=== PATIENT | female | born 1965 | race Caucasian/White ===

== ENCOUNTER 2016-12-22 21:12 | Emergency (ER) | payer BC ==
[~2016-12-22] VITALS: Ht 157.5 cm; Wt 68.0 kg
--- NOTE | 2016-12-22 21:28 | NUR ---
PATIENT WALKED INTO ER C/O SORE THROAT,GENARALIZED BODYACHE AND COUGH X3 DAYS... PT IS ALERT, ORIENTED X 4, NO RESP DISTRESS NOTED OR REPORTED UPON ASSESSMENT...
--- NOTE | 2016-12-22 22:44 | NUR ---
Patient eloped from facility. ER physician notified. Pt walked out of ER unassisted with belongings and at side...
== END 2016-12-22 22:47 | disposition left against medical advice (07) ==
LOC: ER 21:14
DX: Z53.21 Procedure and treatment not carried out due to patient leaving prior to being seen by health care provider (principal)
CPT/HCPCS: A4663

== ENCOUNTER 2024-06-02 20:19 | Emergency (ER) | payer BC ==
[~2024-06-02] VITALS: Ht 157.5 cm; Wt 69.4 kg
[2024-06-02 22:30] VITALS: BP 136/87; TEMP 98; O2SAT 97
== END 2024-06-02 22:22 | disposition home or self-care (01) ==
LOC: ER 20:19
DX: S69.81XA Other specified injuries of right wrist, hand and finger(s), initial encounter (principal); M65.931 Unspecified synovitis and tenosynovitis, right forearm; Z88.0 Allergy status to penicillin; Z88.5 Allergy status to narcotic agent; Z91.030 Bee allergy status; X58.XXXA Exposure to other specified factors, initial encounter; Y93.89 Activity, other specified; Y92.89 Other specified places as the place of occurrence of the external cause; Y99.8 Other external cause status
CPT/HCPCS: 73130; A4606; A4663

== ENCOUNTER 2024-07-26 11:19 | Emergency (ER) | payer BC ==
[~2024-07-26] VITALS: Ht 157.5 cm; Wt 69.9 kg
[2024-07-26] MEDS ORDERED: diphenhydrAMINE 50 MG/1 ML VIAL ONE ×2 (11:36→11:41)
[2024-07-26] MEDS ORDERED: methylPREDNISolone SOD SUCC 125 MG/2 ML VIAL ONE ×2 (11:36→11:41)
[2024-07-26] MEDS: methylPREDNISolone SOD SUCC 125 MG/2 ML VIAL IV ONE (11:39)
[2024-07-26] MEDS: EPINEPHRINE 1 MG/1 ML 30 ML VIAL IM ONE (11:44)
[2024-07-26 11:46] LABS: BASOPHILS # (AUTO) 0.1 K/UL (0.0-0.2); EOSINOPHILS # (AUTO) 0.2 K/uL (0.0-0.7); EOSINOPHILS % (AUTO) 2.6 % (0.0-7.0); HEMATOCRIT 45.6 % (31.2-41.9); HEMOGLOBIN 15.3 g/dL (10.9-14.3); MEAN CORPUSCULAR HEMOGLOBIN 30.1 uug (24.7-32.8); MEAN CORPUSCULAR HGB CONC 34 g/dL (32.3-35.6); MEAN CORPUSCULAR VOLUME 89.7 fL (75.5-95.3); MONOCYTES # (AUTO) 0.7 K/uL (0.1-1.30); MONOCYTES % (AUTO) 9.2 % (0.0-11.0); NEUTROPHILS # (AUTO) 4.9 K/uL (1.8-8.9); NEUTROPHILS % (AUTO) 62.2 % (38.5-71.5); PLATELET COUNT (AUTO) 254 K/uL (179-408); RED BLOOD CELL COUNT(AUTO) 5.09 MIL/uL (3.63-4.92); RED CELL DISTRIBUTION WIDTH 13.5 % (12.3-17.7); WHITE BLOOD COUNT (AUTO) 7.9 K/uL (3.8-11.8)
[2024-07-26] MEDS: diphenhydrAMINE 50 MG/1 ML VIAL IV ONE (11:48)
[2024-07-26 11:51] LABS: DIFFERENTIAL COMMENT 1
[2024-07-26 11:57] LABS: ALBUMIN 4.4 g/dL (3.4-5.0); BILIRUBIN,DIRECT 0.1 mg/dL (0.0-0.2); BILIRUBIN,TOTAL 0.5 mg/dL (0.2-1.0); CALCIUM 9.4 mg/dL (8.5-10.1); CREATININE 0.8 mg/dL (0.6-1.3); TOTAL PROTEIN, SERUM 7.7 g/dL (6.4-8.2)
[2024-07-26] MEDS ORDERED: PRED20TA PO (12:43)
[2024-07-26 12:58] VITALS: BP 149/99; TEMP 98.8; O2SAT 99
== END 2024-07-26 12:59 | disposition home or self-care (01) ==
LOC: ER 11:19
DX: T78.09XA Anaphylactic reaction due to other food products, initial encounter (principal); Z88.0 Allergy status to penicillin; Z88.5 Allergy status to narcotic agent; Z91.030 Bee allergy status; Y92.89 Other specified places as the place of occurrence of the external cause
CPT/HCPCS: 99284; 96374; 96375; 80076; 80048; 85025; 36415; 96372; J1200 ×2; J0171; J2919 ×2; A4606; A4663